=== PATIENT | female | born 2000 | race Two or more races ===

== ENCOUNTER 2023-03-04 23:24 | Inpatient (IN) ==
[2023-03-04 23:55] VITALS: BMI 34.2
[2023-03-05 00:14] LABS: BILIRUBIN,URINE NEGATIVE (NEGATIVE); BLOOD/HEMOGLOBIN,URINE 2+ (NEGATIVE); GLUCOSE, URINE NEGATIVE (NEGATIVE); KETONES,URINE NEGATIVE (NEGATIVE); LEUKOCYTE ESTERASE ,URINE 3+ (NEGATIVE); NITRITES,URINE NEGATIVE (NEGATIVE); PROTEIN,URINE 1+ (NEGATIVE); UROBILINOGEN,URINE NORMAL (NORMAL)
[2023-03-05 00:16] LABS: AMNISURE ROM TEST NO MEMBRANES RUPTURE (NO RUPTURE)
[2023-03-05 00:19] LABS: BASOPHILS % (AUTO) 0.3 % (0.2-1.0); EOSINOPHILS # (AUTO) 0.1 x10^3/uL (0.0-0.2); EOSINOPHILS % (AUTO) 0.8 % (0.9-2.9); HEMATOCRIT 33.9 % (36.0-47.0); HEMOGLOBIN 11.3 g/dL (12.0-16.0); LYMPHOCYTES # (AUTO) 2.8 X10^3/uL (1.3-2.9); LYMPHOCYTES % (AUTO) 22.2 % (21.0-51.0); MEAN CORPUSCULAR HEMOGLOBIN 24.5 pg (27.0-34.0); MEAN CORPUSCULAR HGB CONC 33.4 g/dL (33.0-35.0); MEAN CORPUSCULAR VOLUME 73.4 fL (80.0-100.0); MEAN PLATELET VOLUME 8.5 fL (7.4-11.0); MONOCYTES # (AUTO) 1.1 x10^3/uL (0.3-0.8); MONOCYTES % (AUTO) 8.3 % (0.0-13.0); NEUTROPHILS # (AUTO) 8.7 x10^3/uL (2.2-4.8); NEUTROPHILS % (AUTO) 68.4 % (42.0-75.0); PLATELET COUNT 330 X10^3/uL (150.0-450.0); RED BLOOD COUNT 4.62 X10^6/uL (3.5-5.4); RED CELL DISTRIBUTION WIDTH 15.6 % (11.6-16.5); WHITE BLOOD COUNT 12.7 X10^3/uL (3.6-10.0)
[2023-03-05] MEDS ORDERED: PITOCIN IVP ONE (00:25)
[2023-03-05] MEDS ORDERED: NUBAIN INJ 20 MG AMP IVP PRN (00:25)
[2023-03-05] MEDS ORDERED: REGLAN INJ 10 MG VIAL IVP PRN (00:25)
[2023-03-05 00:27] LABS: APPEARANCE,URINE HAZY (CLEAR); COLOR,URINE YELLOW (YELLOW)
[2023-03-05 00:28] LABS: BACTERIA,URINE 1+ /HPF (NEGATIVE); SQUAMOUS EPITHELIAL CELL,UR NUMEROUS /HPF (NEGATIVE); YEAST,URINE FEW /HPF (NEGATIVE)
[2023-03-05] MEDS ORDERED: AMPICILLIN VIAL 2 GRAM ONE (00:32)
[2023-03-05] MEDS ORDERED: NS 100 ML IV 100 ML ONE ×2 (00:32→04:03)
[2023-03-05] MEDS ORDERED: D5 1/2 NS 1,000 mL + PITOCIN 20 UNITS/L IV 20 UNITS/1,000 ML BAG IV ONE (00:33)
[2023-03-05] MEDS ORDERED: PITOCIN ONE (00:38)
[2023-03-05 00:40] LABS: ALANINE AMINOTRANSFERASE 15 Units/L (12-78); ALBUMIN 2.5 g/dL (3.4-5.0); ALKALINE PHOSPHATASE 182 Units/L (46-116); ASPARTATE AMINO TRANSFERASE 19 Units/L (15-37); BLOOD UREA NITROGEN 8 mg/dL (7-18); CALCIUM 8.6 mg/dL (8.5-10.1); CARBON DIOXIDE 24.1 mmol/L (21-32); CHLORIDE 100 mmol/L (98-107); COR CA(FOR HYPOALB) 9.8 mg/dL (8.5-10.1); CREATININE 0.64 mg/dL (0.55-1.02); GLUCOSE 96 mg/dL (65-99); POTASSIUM 3.6 mmol/L (3.5-5.1); SODIUM 135 mmol/L (136-145); TOTAL PROTEIN 7.4 g/dL (6.4-8.2); eGFR NON BLACK RACES > 60 (>60)
[2023-03-05 00:42] LABS: PLATELET MORPHOLOGY COMMENT NORMAL (NORMAL)
[2023-03-05 00:43] LABS: MICROCYTOSIS SLIGHT
[2023-03-05] MEDS ORDERED: D5 1/2 NS 1,000 ML 1,000 ML IV SCH (01:00)
[2023-03-05] MEDS ORDERED: AMPICILLIN VIAL 2 GRAM 2 G in NS 100 ML IV + SPIKE MINIBAG* 100 ML IV SCH (01:00)
[2023-03-05] MEDS ORDERED: D5 LR + PITOCIN 10 UNITS/L 10 UNITS/1,000 ML BAG IV PRN (02:30)
[2023-03-05] MEDS ORDERED: AMPICILLIN VIAL 1 GRAM ONE (04:03)
[2023-03-05] MEDS ORDERED: AMPICILLIN VIAL 1 GRAM 1 G in NS 50 ML IV + SPIKE MINIBAG* 50 ML IV SCH (04:30)
[2023-03-05] MEDS ORDERED: XYLOCAINE 1 % (PLAIN) ONE (06:50)
[2023-03-05] MEDS ORDERED: MOTRIN TAB 800 MG PO PRN (06:50)
[2023-03-05] MEDS ORDERED: D5 1/2 NS 1,000 ML 1,000 ML with PITOCIN 20 UNITS IV SCH ×2 (06:50)
[2023-03-05] MEDS ORDERED: AMBIEN PO PRN (07:58)
[2023-03-05] MEDS ORDERED: MILK OF MAGNESIA PO PRN (07:58)
[2023-03-05] MEDS ORDERED: DERMOPLAST PAIN RELIEF SPRAY TOP PRN (07:58)
[2023-03-05] MEDS: PRENATAL PLUS PO SCH (08:40)
[2023-03-06 05:49] LABS: HEMATOCRIT 26.7 % (36.0-47.0)
[2023-03-06 05:58] LABS: HEMOGLOBIN 8.9 g/dL (12.0-16.0)
[2023-03-06 09:59] VITALS: RESP 20
[2023-03-06] MEDS: PRENATAL PLUS PO SCH (12:56)
[2023-03-06 12:58] VITALS: BP 117/72; PULSE 98; TEMP 97.9; O2SAT 98
[2023-03-06] MEDS ORDERED: ADACEL or BOOSTRIX TDaP VACCINE IM ONE ×2 (14:25→14:29)
== END 2023-03-06 15:40 | disposition home or self-care (01) | DRG 807 ==
LOC: ER 23:26 → LD 03-05 00:15 → MED/SURG 03-05 08:05
PROVIDERS: ADMIT Obstetrics & Gynecology Obstetrics; ATTEND Obstetrics & Gynecology Obstetrics